=== PATIENT | female | born 1990 | race Caucasian/White ===

== ENCOUNTER → 2018-01-18 | Day surgery (SDC) | payer OTHER ==
[~2018-01-18] VITALS: Ht 170.2 cm; Wt 61.5 kg
[~2018-01-18] MED LIST: BUPIVACAINE/EPINEPHRINE 0.25% 50 ML VIAL ONE; BUSP10TA PO; CHLORHEXIDINE GLUCONATE 2 % 1 PACK (2 CLOTHS) TOPICAL PRN; DEXAMETHASONE SOD PHOS 4 MG/ML VIAL ONE; HYDROmorphone HCL PF 2 MG/ML VIAL ONE; INSULIN HUMAN REGULAR 1,000 UNITS/10 ML VIAL SQ PRN; LACTATED RINGER'S 1000 ML IV PRN; LIDOCAINE 1%/EPINEPHrine 1:100,000 SOLN 20 ML VIAL ONE; LORazepam 2 MG/ML VIAL ONE; MEPERIDINE HCL 25 MG/ML VIAL ONE; METOPROLOL TARTRATE 25 MG TAB PO PRN; MIDAZOLAM HCL 2 MG/2 ML VIAL ONE; MORPHINE SULFATE 4 MG/ML INJ ONE; NEOMYCIN/POLYMYXIN 1 ML G.U. IRRIGANT ONE; POVIDONE IODINE 5% (ANTISEPSIS KIT) 4 APPLICATIONS EACH NARE PRN; SODIUM CHLORID 0.9% 500 ML IV PRN; TRIAMCINOLONE ACETONIDE 40 MG/ML VIAL ONE; ceFAZolin 1,000 MG/NS 100 ML IV SCH; oxyCODONE/ACETAMINOPHEN 5 MG/325 MG TAB ONE
[2018-01-18 09:25] VITALS: PULSE 76
[2018-01-18 11:15] VITALS: BP 111/64; PULSE 64; RESP 16; TEMP 97.7; O2SAT 99
--- NOTE | 2018-01-26 19:08 | PD.OP ---
Operative Report Date of Surgery: Jan 18, 2018 Preoperative Diagnosis: (1) Mass of right hand Postoperative Diagnosis: (1) Mass of right hand Procedure: Excision of right dorsal hand mass (34193) Surgeon: Krish Dallas Manager Database(s): . Operation and Findings: This is a 27-year-old female who presented to clinic with a right dorsal hand mass. Risks benefits and alternative treatments were discussed. The patient elected to assume the risks of excision of the above mass. Informed consent was obtained. The surgical site was marked in the preoperative holding bay. Antibiotics were given on-call to the operating room. The patient was taken to the operating room and all pressure points were padded. A surgical timeout was performed. The surgical site was instilled with quarter percent Marcaine with epinephrine. After an appropriately padded upper extremity tourniquet was placed, the surgical site was prepped and draped in the usual sterile fashion. The right upper extremity was exsanguinated using the Esmarch and the tourniquet was inflated to 200 mmHg. The mass seemed to have 2 prominences dorsally between the extensor digitorum, venous tendons to the middle and ring fingers. A longitudinal incision was made centered over these 2 prominences. After the skin was incised, blunt dissection was carried down to the extensor digitorum communis tendons which were found to be intimately associated with the mass. There were 2 small cutaneous nerve branches which were kept free from injury but passed close to the lesion and were intimately associated with it. The mass was sharply from the middle finger and ring finger EDC tendons and appeared to have a stalk which dove distally to deep fascia. It was sent for permanent pathology. The skin was reapproximated using 3-0 and 4- 0 Monocryl in a deep dermal and running subcuticular fashion respectively. The surgical site was cleaned. The incision was dressed with bacitracin Xeroform gauze dry gauze fluffs a Josue and a bias wrap. The tourniquet was released at 33 minutes. All digits pinked up nicely. The patient was awoken from anesthesia and arrived stable and doing well to the PACU. All needle sponge and instrument counts were correct 2. Krish Dallas MD Jan 26, 2018 19:08
== END | disposition home or self-care (01) ==
LOC: PHSDC 06:05
PROVIDERS: ATTEND Student in an Organized Health Care Education/Training Program
DX: M67.441 Ganglion, right hand (principal)
CPT/HCPCS: 01810; 26116; 88304; J0690; J1100; J1170; J2060; J2175; J2250; J2270; J7120; 88305; J3010; J3301